=== PATIENT | male | born 1980 | race Caucasian/White ===

== ENCOUNTER 2017-04-15 05:15 | Emergency (ER) | payer OTHER ==
[2017-04-15 07:24] LABS: HEMOGLOBIN 14.5 gm/dl (14.0-17.5); RED BLOOD COUNT 4.87 M/UL (4.20-5.50); WHITE BLOOD COUNT 12.5 K/UL (4.5-11.0)
[2017-04-15 07:46] LABS: BUN/CREATININE RATIO 26 (0-10)
== END 2017-04-15 11:52 | disposition home or self-care (01) ==
LOC: ER1 05:15
PROVIDERS: Emergency Medicine
DX: R10.12 Left upper quadrant pain (principal); M54.9 Dorsalgia, unspecified; G89.29 Other chronic pain; Z79.891 Long term (current) use of opiate analgesic; Z79.899 Other long term (current) drug therapy
CPT/HCPCS: 36415; 80053; 81001; 83690; 84484; 85025; 93005; 96374; 96375; 99284; C9113; J1335; J1885; J2405; J7030; J7050; Q9962